=== PATIENT | male | born 1940 | race Two or more races ===

== ENCOUNTER 2019-04-18 07:57 | Emergency (ER) | payer OTHER ==
[~2019-04-18] VITALS: Ht 170.2 cm; Wt 94.3 kg
--- NOTE | 2019-04-18 08:05 | NUR ---
BIB FAMILY FOR DIZZINESS AND DOUBLE VISION STARTED 2 DAYS AGO, -KO, -HEADACHE, TO ER BED 9, HOOKED TO MONITOR, CHANGED TO GOWN, PROVIDED W WARM BLANKET, AWAITING MD FINN
--- NOTE | 2019-04-18 08:10 | NUR ---
DR PUENTE AT BEDSIDE
--- NOTE | 2019-04-18 08:22 | NUR ---
[employer] COMMISSIONER AT BEDSIDE
[2019-04-18] MEDS ORDERED: ONDANSETRON HCL/PF 4 MG/2 ML VIAL IVP ONE (08:30)
[2019-04-18] MEDS ORDERED: IV NS 0.9% 1,000 ML BAG IV ONE (08:30)
[2019-04-18] MEDS ORDERED: ONDANSETRON HCL/PF 4 MG/2 ML VIAL ONE (08:37)
[2019-04-18 08:39] LABS: BASOPHILS # (AUTO) 0.1 /CMM (0.0-0.2); EOSINOPHILS % (AUTO) 2.3 % (0.0-6.0); HEMATOCRIT 43 % (39-51); HEMOGLOBIN 14.5 g/dL (13.5-17.5); LYMPHOCYTES # (AUTO) 2.3 /CMM (0.8-4.8); MEAN CORPUSCULAR HGB CONC 34 g/dl (31.0-36.0); MEAN CORPUSCULAR VOLUME 82 fL (80-96); MONOCYTES # (AUTO) 0.4 /CMM (0.1-1.30); MONOCYTES % (AUTO) 5.7 % (2.0-12.0); NEUTROPHILS # (AUTO) 4.6 /CMM (1.8-8.9); PLATELET COUNT (AUTO) 172 /CMM (150-450); RED BLOOD CELL COUNT(AUTO) 5.21 MIL/uL (4.5-6.0); WHITE BLOOD COUNT (AUTO) 7.5 K/uL (4.3-11.0)
[2019-04-18 08:48] LABS: CALCIUM, SERUM 9.5 mg/dL (8.5-10.1); CARBON DIOXIDE 27 mmol/L (21-32); CHLORIDE 98 mmol/L (98-107); GLUCOSE 225 mg/dL (74-106); POTASSIUM 4.3 mmol/L (3.5-5.1); SODIUM SERUM 136 mmol/L (136-145); UREA NITROGEN, BLOOD 12 mg/dL (7-18)
--- NOTE | 2019-04-18 08:48 | NUR ---
[employer] ACCOUNTING SPECIALIST AT BEDSIDE
[2019-04-18 08:55] LABS: BILIRUBIN,DIRECT 0.1 mg/dL (0.0-0.2); BILIRUBIN,TOTAL 0.5 mg/dL (0.2-1.0)
[2019-04-18 08:56] LABS: ALANINE AMINOTRANSFERASE 35 U/L (12-78); ALBUMIN 3.6 g/dL (3.4-5.0); ALKALINE PHOSPHATASE 90 U/L (46-116); ASPARTATE AMINOTRANSFERASE 18 U/L (15-37); TOTAL PROTEIN, SERUM 7.4 g/dL (6.4-8.2)
--- NOTE | 2019-04-18 08:59 | NUR ---
WHEELED OUT VIA [facility] FOR CTA BRAIN AND CAROTID
[2019-04-18 09:01] LABS: CHOLESTEROL 168 mg/dL (<200); HDL CHOLESTEROL 27 mg/dL (40-60); LDL 101 mg/dL (0-99); TRIGLYCERIDES 211 mg/dL (30-150)
[2019-04-18] MEDS ORDERED: IOHEXOL-350 100 ML VIAL IV ONE (09:04)
[2019-04-18] MEDS ORDERED: IV NS 0.9% 250 ML IV ONE (09:04)
[2019-04-18] MEDS ORDERED: CT SWABBABLE VALVE TRANS SET 1 EA INFUS.SET MC ONE (09:05)
--- NOTE | 2019-04-18 10:22 | NUR ---
THIAGO MOLINA (DAUGHTER) [phone]
--- NOTE | 2019-04-18 11:56 | NUR ---
SPOKE TO [facility] [employer] ADJUSTER JULIO FOR CLINICAL INFORMATION. DIRECT PHONE #: [phone]
--- NOTE | 2019-04-18 13:16 | NUR ---
TRANSFER INFO: PT GOING TO [facility], DIRECT ADMIT TO ROOM 310-A, RN SCOTTY FOR REPORT , AMBULANCE ETA TO FOLLOW
--- NOTE | 2019-04-18 13:34 | NUR ---
PER Ziggy,STACY CHARGE NURSE OF MED SURG UNIT OF [facility], SOMEONE IS STILL IN ROOM 310-A AND WILL CALL US BACK ONCE ROOM IS EMPTY.
--- NOTE | 2019-04-18 14:23 | NUR ---
PER CM JULIO CAN GIVE REPORT TO ALPESH LOU AT [facility] SAME NUMBER
--- NOTE | 2019-04-18 14:32 | NUR ---
REPORT GIVEN TO ALPESH OF [facility].
--- NOTE | 2019-04-18 15:15 | NUR ---
Patient picked up by [facility] in stable condition and be brought to [facility]. Written and verbal after care instructions given. Patientand family verbalizes understanding of instruction.
[2019-04-18 15:17] VITALS: BP 128/72
== END 2019-04-18 15:19 | disposition short-term general hospital (02) ==
LOC: ER 08:05
DX: H53.2 Diplopia (principal); G93.9 Disorder of brain, unspecified; I10 Essential (primary) hypertension; E11.9 Type 2 diabetes mellitus without complications
CPT/HCPCS: 36415; 70496; 70498; 71045; 80048; 80061; 80076; 84484; 85025; 85730; 93005; 96361; 96374; 99285; J2405; J7030; J7050; Q9967